=== PATIENT | male | born 1975 | race Caucasian/White ===

== ENCOUNTER 2025-01-29 20:59 | Emergency (ER) | payer OTHER, SELFPAY ==
--- NOTE | ~2025-01-29 | XR_ITS ---
CLINICAL HISTORY: fall, chest pain 2 view chest x-ray Comparison: None provided Findings: The lungs are clear. Normal size heart. No acute fracture. IMPRESSION: 1. No acute findings. This document has been electronically signed by: Ike Daniels MD on 01/29/2025 22:28:47
--- NOTE | ~2025-01-29 | CT_ITS ---
CLINICAL HISTORY: facial trauma, R eye pain CT maxillofacial without contrast Comparison: None provided Findings: No acute fractures. Temporomandibular joints are intact. Paranasal sinuses and mastoid air cells clear. Orbital contents within normal limits. Visualized intracranial contents are within normal limits. No foreign bodies. IMPRESSION: Unremarkable maxillofacial CT. This document has been electronically signed by: Ike Daniels MD on 01/29/2025 22:26:49
--- NOTE | ~2025-01-29 | CT_ITS ---
CLINICAL HISTORY: fall, facial trauma CT Head Without Contrast: Comparison: None Findings: Cortical sulci are symmetric Basal ganglia are unremarkable No shift in midline structures No intraparenchymal bleeding or abnormal extra axial blood fluid collections Normal pituitary size Clear paranasal sinuses Unremarkable orbital structures No depressed fractures Impression: Unremarkable CT of the head, no signs of acute trauma This document has been electronically signed by: Rome Johnson MD on 01/29/2025 22:24:15
[2025-01-29 21:21] VITALS: BP 113/70; BP 116/77; PULSE 82; PULSE 88; RESP 16; TEMP 36.4; O2SAT 93; O2SAT 97; BMI 32.2
--- NOTE | 2025-01-29 21:26 | ED_ITS ---
HPI - Head Injury General Chief complaint: Fall Stated complaint: FALL, LOS, DIZZY NAUSEA Time Seen by Provider: 01/29/25 21:26 Source: patient and EMS Mode of arrival: EMS Limitations: no limitations History of Present Illness ED Provider: Dr. Caitlin Montalvo HPI Narrative: 49-year-old male with history of hypertension presenting via EMS after a fall that occurred outside. Patient was [place] the [place] when he tripped, falling forward about 8 ft down an embankment. Nearly broke his fall with his right forearm but hit his face on the rocks. He has an abrasion overlying the lower eye socket on the right eye. Complaining of painful movement with his eyes and blurry vision. Also complaining of the headache. No numbness/tingling/weakness of the extremities. He was ambulatory on scene after the fall. Placed in a C-spine collar by EMS. He denies neck pain. Had been feeling well prior to the fall. Does not take blood thinners. Up-to-date on tetanus as of this year. Related Data Previous Rx's ?Medication ?Instructions ?Recorded ondansetron 4 mg disintegrating 4 mg PO Q8H PRN nausea and 01/29/25 tablet vomiting #10 tabs Allergies Allergy/AdvReac Type Severity Reaction Status Date / Time No Known Allergies Allergy Verified 01/29/25 21:31 Review of Systems Review of Systems: as per HPI, full review of systems performed and negative but for the above mentioned pertinent positives and negatives. [facility] Past Medical History Attestation statement: The following information was validated with the patient. [facility] Narrative: Hypertension, overactive bladder, depression, migraine headaches Social History Social History Alcohol intake: current Alcohol intake frequency: a few times a month Smoked in Last 30 Days: Yes Use of substances other than those prescribed or required for medical reasons: No Advance Directives: No Advance Directives Information Provided: No Physical Exam Exam: Exam: GENERAL: Uncomfortable-Appearing, conversant, mild distress due to pain. SKIN: Normal skin color for ethnicity, warm, dry, abrasion overlying the right face just below the eyelid, no rashes noted. HEENT: Normocephalic, no stridor, airway patent, no raccoon's eyes, no Campos sign, dentition intact, EOMI, pupils are equal, reactive, 3 mm, painful eye movement with upward and downward gaze, no evidence of entrapment. NECK: Soft, supple, full ROM, midline structures nontender, no step-offs, no deformities, no lymphadenopathy. CHEST: Heart regular rate and rhythm, no murmurs, symmetric chest rise and fall, no seatbelt sign, crepitus. PULMONARY: Clear to auscultation bilaterally, no labored breathing, no wheezes/rhales/rhonchi. ABDOMINAL: Soft, nondistended, nontender, positive bowel sounds in all quadrants. : Deferred. MUSCULOSKELETAL: Normal tone, full range of motion, no deformities, contusion overlying the medial aspect of the right forearm with associated superficial abrasions, neurovascularly intact distally, full function of the radial, median and ulnar nerves of the right hand NEURO: Alert and oriented x3, CN II through XII intact, equal strength and sensation bilateral upper and lower extremities, no focal neurologic deficits. PSYCHIATRIC: Anxious affect, fluid speech, good eye contact and appropriate demeanor. Vital Signs: Vital Signs: Last Vital Signs Temp 97.5 F 01/29/25 21:21 Pulse 88 01/29/25 21:21 Resp 16 01/29/25 21:21 BP 113/70 01/29/25 21:21 Pulse Ox 93 01/29/25 21:21 O2 Del Method Room Air 01/29/25 21:21 BMI result Body Mass Index 32.2 Medications Administered Discontinued Medications Generic Name Dose Route Start Last Admin Trade Name Freq PRN Reason Stop Dose Admin Lactated Ringer's 1,000 mls @ 999 mls/hr 01/29/25 21:29 01/29/25 21:46 Lr IV 01/29/25 22:29 999 mls/hr .Q1H1M ONE Administration Acetaminophen 1,000 mg in 100 mls @ 400 mls/hr 01/29/25 21:58 01/29/25 22:05 Ofirmev IV 01/29/25 22:12 400 mls/hr ONCE ONE Administration Metoclopramide HCl 10 mg 01/29/25 21:29 01/29/25 21:49 Metoclopramide Hcl 10 Mg/2 Ml Vial IVPUSH 01/29/25 21:30 10 mg ONCE ONE Administration Medical Decision Making Medical Decision Making MDM Narrative: Patient presents today with chief complaint of facial trauma after fall. Different diagnosis on this patient includes intracranial hemorrhage, skull fracture, neck injury including fracture or spinal cord pathology. Other diagnoses considered would include chest or abdominal trauma as well as long bone fractures. Based on my physical exam, t he ordered imaging modalities are indicated. The patient specifically does not show any signs of central cord syndrome as evidenced by equal strength in the upper extremities with normal two-point di scrimination. Sensation is not altered. GCS is appropriate. Patient is neurovascularly intact. There are no signs of vascular emergency. No signs of shock. No respiratory distress. He is having mild pain with the eye movement up and down, no nerve entrapment, full function of the radial, median and ulnar nerves of the right arm. Patient was given Reglan for pain control. 11:02 PM 01/29/2025 ([email or web address].) imaging is negative for acute process. Patient reports he is feeling improved. Using shared decision making, plan for discharge home to follow-up with primary care and/or specialist. Patient understands and agrees with plan for discharge. Discharged home in stable condition. Differential Diagnosis Differential Diagnoses: The differential diagnosis associated with the presentation includes (As above) Admission/Observation Consideration of admission/observation: Escalation of care including admission/observation considered Radiology Impression Discussion of test interpretation with radiology: I have reviewed the radiologist's reading. Radiologist Impression: 2 view chest x-ray Comparison: None provided Findings: The lungs are clear. Normal size heart. No acute fracture. IMPRESSION: 1. No acute findings. This document has been electronically signed by: Ike Daniels MD on 01/29/2025 22:28:47 CT maxillofacial without contrast Comparison: None provided Findings: No acute fractures. Temporomandibular joints are intact. Paranasal sinuses and mastoid air cells clear. Orbital contents within normal limits. Visualized intracranial contents are within normal limits. No foreign bodies. IMPRESSION: Unremarkable maxillofacial CT. This document has been electronically signed by: Ike Daniels MD on 01/29/2025 22:26:49 CT Head Without Contrast: Comparison: None Findings: Cortical sulci are symmetric Basal ganglia are unremarkable No shift in midline structures No intraparenchymal bleeding or abnormal extra axial blood fluid collections Normal pituitary size Clear paranasal sinuses Unremarkable orbital structures No depressed fractures Impression: Unremarkable CT of the head, no signs of acute trauma This document has been electronically signed by: Rome Johnson MD on 01/29/2025 22:24:15 Independent Historian Clinical information obtained from an independent historian. History obtained from or confirmed by: EMS Prescription Management I considered prescription management with: Other (Zofran) Chronic Conditions Patient?s care impacted by: Hypertension Discharge Plan Discharge Clinical Impression: Fall down embankment ([place]), initial encounter, Facial trauma, Abrasion of face, Closed head injury, Contusion of forearm, right Patient Disposition: Home, Self-Care Additional Instructions: You likely sustained a concussion today after the fall. Signs and symptoms of a concussion include: Foggy thought process, confusion, nausea, headache, dizziness, among others. You should continue to take Tylenol for headaches and Zofran for nausea. Watch out for signs of infection in your face including redness of the face, pus drainage or fevers. Return to the emergency department with any new or worsening symptoms including: Worsening headaches despite Tylenol, inability to tolerate food or drink, worsening pain or swelling in your hand or forearm, numbness/tingling/weakness of your hand, any new symptom that concerns you. Call 911 with any medical emergency. Follow up with your primary care doctor as soon as possible. Prescriptions: New ondansetron 4 mg tablet,disintegrating 4 mg PO Q8H PRN (Reason: nausea and vomiting) Qty: 10 0RF Print Language: [place]isian
[2025-01-29] MEDS: Lactated Ringers 1,000 ML 999 ML IV (21:46)
[2025-01-29 23:32] VITALS: BP 113/72; PULSE 82; RESP 16; TEMP 36.8; O2SAT 99
== END 2025-01-29 23:33 | disposition home or self-care (01) ==
PROVIDERS: Emergency Provider Emergency Medicine
DX: S00.211A Abrasion of right eyelid and periocular area, initial encounter (principal); S50.11XA Contusion of right forearm, initial encounter; R07.89 Other chest pain; R51.9 Headache, unspecified; H53.8 Other visual disturbances; R11.0 Nausea; I10 Essential (primary) hypertension; W17.81XA Fall down embankment (hill), initial encounter; Y93.9 Activity, unspecified; Y92.9 Unspecified place or not applicable; Y99.8 Other external cause status
CPT/HCPCS: 70450; 70486; 71046; 96361; 96374; 96375; 99284; J0131; J2765; J7120

== ENCOUNTER → 2025-01-29 21:27 | Outpatient (BNV) | payer OTHER, SELFPAY | PROVIDERS: Emergency Provider Emergency Medicine; Visit Provider Radiology Diagnostic Radiology | DX: S09.93XA Unspecified injury of face, initial encounter (principal); H57.11 Ocular pain, right eye; R07.9 Chest pain, unspecified; W01.0XXA Fall on same level from slipping, tripping and stumbling without subsequent striking against object, initial encounter | CPT/HCPCS: 70450; 70486; 71046 ==